=== PATIENT | male | born 1995 | race Caucasian/White ===

== ENCOUNTER 2020-11-05 16:05 | Emergency (ER) | payer SELFPAY ==
[~2020-11-05] VITALS: Ht 177.8 cm; Wt 92.0 kg
[2020-11-05 16:15] VITALS: BP 136/100
[2020-11-05] MEDS ORDERED: VALA10002 MT (16:58)
[2020-11-05] MEDS ORDERED: P50 PO (16:58)
[2020-11-05] MEDS ORDERED: POLY15DR31 RIGHTEYE (16:58)
[2020-11-05] MEDS ORDERED: MINE3.5O13 RIGHTEYE (16:58)
[2020-11-05] MEDS ORDERED: PREDNISONE 20MG TABLET PO ONE (17:00)
[2020-11-05] MEDS ORDERED: VALACYCLOVIR HCL 500MG TABLET PO SCH (17:00)
== END 2020-11-05 17:16 | disposition home or self-care (01) ==
LOC: ER 16:05
DX: G51.0 Bell's palsy (principal)
CPT/HCPCS: 99283; J7512